=== PATIENT | female | born 1990 | race Caucasian/White ===

== ENCOUNTER 2022-03-28 13:00 | Emergency (ER) | payer MEDICAID ==
[~2022-03-28] VITALS: Ht 160 cm; Wt 89.0 kg
--- NOTE | 2022-03-28 13:25 | NUR ---
pt to brittanie izquierdo
[2022-03-28 13:36] VITALS: BP 109/57
--- NOTE | 2022-03-28 13:40 | NUR ---
pt to xray via w/c
--- NOTE | 2022-03-28 14:00 | NUR ---
31 y/o female, c/o right knee pain that started after mechanical fall yesterday after going down "bouncing slide". pt states she twisted her knee and landed to her side. a&ox4, unable to ambulate or bear weight. denies head trauma, loc or syncope. pmh: denies nka med: ibuprofen
[2022-03-28] MEDS ORDERED: IBUP-2213 PO (15:26)
[2022-03-28] MEDS: IBUPROFEN 600 MG TAB PO ONE (15:26)
[2022-03-28 16:44] VITALS: BP 109/57
--- NOTE | 2022-03-28 16:44 | NUR ---
Patient discharged with v/s stable. Written and verbal after care instructions given and explained. Patient alert, oriented and verbalized understanding of instructions. Ambulatory with crutches. All questions addressed prior to discharge. ID band removed. Patient advised to follow up with PMD. Rx of ibuprofen (sent) given. Patient educated on indication of medication including possible reaction and side effects. Opportunity to ask questions provided and answered.
== END 2022-03-28 16:44 | disposition home or self-care (01) ==
LOC: MED 13:00
DX: S83.91XA Sprain of unspecified site of right knee, initial encounter (principal); W19.XXXA Unspecified fall, initial encounter; Y93.89 Activity, other specified; Y92.89 Other specified places as the place of occurrence of the external cause; Y99.8 Other external cause status
CPT/HCPCS: 29505; 73562; 99283